=== PATIENT | male | born 1945 ===

== ENCOUNTER → 2020-03-19 | Outpatient (CLI) | payer MEDICARE, OTHER ==
[~2020-03-19] MED LIST: FOLI0.8C PO; LISI-338 PO; PANT40TA5 PO; UBID10CA5 PO
== END | disposition home or self-care (01) ==
LOC: LAB 11:00
PROVIDERS: ATTEND Nurse Anesthetist, Certified Registered
DX: Z20.828 Contact with and (suspected) exposure to other viral communicable diseases (principal)
CPT/HCPCS: C9803; U0003; 36415

== ENCOUNTER → 2020-03-22 | Day surgery (SDC) | payer MEDICARE, OTHER ==
[~2020-03-22] MED LIST changes: +IPRATRPIUM/ALBUTEROL 0.5/2.5MG 3 ML NEBU. NEB PRN; +IV RINGERS SOLUTION,LACTATED 1,000 ML IV SCH; +MIDAZOLAM HCL PF 2 MG/2 ML VIAL. IV ONE; +ONDANSETRON PF 4 MG/2 ML VIAL. IV PRN; -PANT40TA5 PO; +PANT40TA6 PO; +PROPOFOL 10,000 MCG/ML (20ML) VIAL IV ONE
[2020-03-22 09:08] VITALS: BP 115/70
== END | disposition home or self-care (01) ==
LOC: SURG 07:01
PROVIDERS: ATTEND Internal Medicine Gastroenterology
DX: Z12.11 Encounter for screening for malignant neoplasm of colon (principal); K63.89 Other specified diseases of intestine; R10.13 Epigastric pain; K57.30 Diverticulosis of large intestine without perforation or abscess without bleeding; K64.8 Other hemorrhoids
CPT/HCPCS: 43235; 45378; J2704; J7120; 36415; G0105; U0003-CS